=== PATIENT | male | born 1950 | race Caucasian/White ===

== ENCOUNTER 2018-02-17 15:12 | Emergency (ER) | payer MEDICARE ==
[2018-02-17 15:52] VITALS: BP 140/94
[2018-02-17] MEDS ORDERED: DIPH/PERTUSS(ACELL)/TETANUS VAC/PF 0.5 ML SYR (>=10YO) IM ONE (17:25)
[2018-02-17] MEDS ORDERED: LIDOCAINE 1%/EPINEPHRINE INJ 20 ML VIAL INJ ONE (17:26)
--- NOTE | 2018-02-17 17:28 | ER Document Report ---
ED Medical Screen (RME) - General Chief Complaint: Laceration Stated Complaint: ARM LACERATION Time Seen by Provider: 02/17/18 17:21 TRAVEL OUTSIDE OF THE [place] IN LAST 30 DAYS: No - HPI Notes: 02/17/18 17:27 Patient is a 67-year-old male that presents to the emergency department for chief complaint of left forearm laceration. Patient states he cut his left forearm on a knife at about 2 PM today. He denies being on blood thinners. He is not up-to-date on tetanus vaccine. He denies numbness and weakness.. ROS: GENERAL: Denies fever of chills CV: Denies chest pain PHYSICAL EXAMINATION: GENERAL: Well-appearing, well-nourished and in no acute distress. HEAD: Atraumatic, normocephalic. EYES: Pupils equal round extraocular movements intact, conjunctiva are normal. ENT: Nares patent NECK: Normal range of motion LUNGS: No respiratory distress Musculoskeletal: Normal range of motion NEUROLOGICAL: Normal speech, normal gait. PSYCH: Normal mood, normal affect. Skin: 5.0 cm linear full-thickness left forearm laceration with mild bleeding MDM: Patient seen and examined for rapid initial assessment. Vital signs reviewed. A comprehensive ED assessment and evaluation of the patient, analysis of test results and completion of the medical decision making process will be conducted by additional ED providers. 02/17/18 17:28 - Related Data Allergies/Adverse Reactions: No Known Allergies Allergy (Verified 02/17/18 15:26) Past Medical History - Social History Chew tobacco use (# tins/day): No Renal/ Medical History: Denies: Hx Peritoneal Dialysis Physical Exam - Vital signs Vitals: Temp Pulse Resp BP Pulse Ox 97.4 F 76 16 140/94 H 97 02/17/18 15:49 02/17/18 15:49 02/17/18 15:49 02/17/18 15:49 02/17/18 15:49 Course - Vital Signs Vital signs: Temp Pulse Resp BP Pulse Ox 97.4 F 76 16 140/94 H 97 02/17/18 15:49 02/17/18 15:49 02/17/18 15:49 02/17/18 15:49 02/17/18 15:49 Doctor's Discharge - Discharge Referrals: LOCALMD,NO [Primary Care Provider] - Follow up as needed
--- NOTE | 2018-02-17 18:06 | RADIOLOGY REPORT (SQ) ---
EXAM DESCRIPTION: FOREARM LEFT COMPLETED DATE/TIME: 02/17/2018 5:51 pm REASON FOR STUDY: puncture wound COMPARISON: None. NUMBER OF VIEWS: Two views. TECHNIQUE: Two radiographic images acquired of the left forearm, including elbow and wrist in at [address] one projection. LIMITATIONS: None. FINDINGS: MINERALIZATION: Normal. BONES: No acute fracture. No worrisome bone lesions. SOFT TISSUES: No obvious swelling or foreign body. OTHER: No other significant finding. IMPRESSION: No significant findings. TECHNICAL DOCUMENTATION: JOB ID: [id number] [employer]- All Rights Reserved Reading location - IP/workstation name: [email or web address]
--- NOTE | 2018-02-17 20:38 | ER Document Report ---
ED General - General Mode of Arrival: Ambulatory Information source: Patient TRAVEL OUTSIDE OF THE [place] IN LAST 30 DAYS: No <ANTHONY PAULINO - Last Filed: 02/17/18 20:41> <PHAM SAINI - Last Filed: 02/18/18 03:11> - General Chief Complaint: Laceration Stated Complaint: ARM LACERATION Time Seen by Provider: 02/17/18 17:21 Notes: Patient is a 67 year old male presenting to the emergency department complaining of a laceration to the left forearm onset around 1400 today. Patient states he accidentally cut himself using a razor. Patient states he is able to move is hand, wrist and fingers. (ANTHONY PAULINO) - Related Data Allergies/Adverse Reactions: No Known Allergies Allergy (Verified 02/17/18 15:26) Past Medical History - Social History Smoking Status: Former Smoker Chew tobacco use (# tins/day): No Patient has suicidal ideation: No Patient has homicidal ideation: No Renal/ Medical History: Denies: Hx Peritoneal Dialysis <ANTHONY PAULINO - Last Filed: 02/17/18 20:41> - Social History Smoking Status: Former Smoker Frequency of alcohol use: None Drug Abuse: None Family History: Reviewed & Not Pertinent <PHAM SAINI - Last Filed: 02/18/18 03:11> Review of Systems - Review of Systems Constitutional: No symptoms reported EENT: No symptoms reported Cardiovascular: No symptoms reported Respiratory: No symptoms reported Gastrointestinal: No symptoms reported Genitourinary: No symptoms reported Male Genitourinary: No symptoms reported Musculoskeletal: No symptoms reported Skin: See HPI Hematologic/Lymphatic: No symptoms reported Neurological/Psychological: No symptoms reported <PHAM SAINI - Last Filed: 02/18/18 03:11> Physical Exam - Vital signs Interpretation: Normal - General General appearance: Appears well, Alert - HEENT Head: Normocephalic, Atraumatic Eyes: Normal Pupils: PERRL - Respiratory Respiratory status: No respiratory distress Chest status: Nontender Breath sounds: Normal Chest palpation: Normal - Cardiovascular Rhythm: Regular Heart sounds: Normal auscultation Murmur: No - Abdominal Inspection: Normal Distension: No distension Bowel sounds: Normal Tenderness: Nontender Organomegaly: No organomegaly - Back Back: Normal, Nontender - Extremities General upper extremity: Nontender, Normal color, Normal ROM, Normal temperature General lower extremity: Normal inspection, Nontender, Normal color, Normal ROM , Normal temperature, Normal weight bearing. No: Jose's sign Shoulder: Normal Arm: Normal Elbow: Normal Forearm: Laceration - 8 cm to L forearm Wrist: Normal Hand: Normal Hip: Normal Thigh: Normal Knee: Normal Calf: Normal Ankle: Normal - Neurological Neuro grossly intact: Yes Cognition: Normal Orientation: AAOx4 [place] Coma Scale Eye Opening: Spontaneous [place] Coma Scale Verbal: Oriented Mehrdad Coma Scale Motor: Obeys Commands Mehrdad Coma Scale Total: 15 Speech: Normal Motor strength normal: LUE, RUE, LLE, RLE Sensory: Normal - Psychological Associated symptoms: Normal affect, Normal mood - Skin Skin Temperature: Warm Skin Moisture: Dry Skin Color: Normal <PHAM SAINI - Last Filed: 02/18/18 03:11> - Vital signs Vitals: Temp Pulse Resp BP Pulse Ox 97.4 F 76 16 140/94 H 97 02/17/18 15:49 02/17/18 15:49 02/17/18 15:49 02/17/18 15:49 02/17/18 15:49 Course <ANTHONY PAULINO - Last Filed: 02/17/18 20:41> - Diagnostic Test Radiology reviewed: Reports reviewed <PHAM SAINI - Last Filed: 02/18/18 03:11> - Re-evaluation Re-evalutation: 02/17/18 Patient is a 67-year-old male who comes in after sustaining a razor blade injury to his left forearm. Patient is left-hand dominant. Bleeding controlled. Patient is neurovascularly intact. Median, radial, and ulnar nerve with motor and sensation intact throughout. Pulses intact. Laceration has been repaired. Please see procedure note. Given nature of the injury, patient will be discharged home with prophylactic antibiotics with impending storm coming. Patient is to follow-up with his doctor this week and have sutures removed in 10-14 days. Understands agrees with plan. Stable for discharge. (PHAM SAINI) - Vital Signs Vital signs: Temp Pulse Resp BP Pulse Ox 97.4 F 76 16 140/94 H 97 02/17/18 15:49 02/17/18 15:49 02/17/18 15:49 02/17/18 15:49 02/17/18 15:49 Procedures - Laceration/Wound Repair Left forearm Wound length (cm): 8 Wound's Depth, Shape: Linear Laceration pre-procedure: Sterile PPE donned, Sterile drapes applied Anesthetic type: 1% Lidocaine w/epi Wound explored: Clean Irrigated w/ Saline (mLs): 500 Wound Repaired With: Sutures Suture Size/Type: 4:0, Nylon Number of Sutures: 10 Post-procedure wound care: Sterile dressing applied Post-procedure NV exam normal: Yes Complications: No <PHAM SAINI - Last Filed: 02/18/18 03:11> Discharge <ANTHONY PAULINO - Last Filed: 02/17/18 20:41> <PHAM SAINI - Last Filed: 02/18/18 03:11> - Discharge Clinical Impression: Forearm laceration Qualifiers: Encounter type: initial encounter Laterality: left Qualified Code(s): S51.812A - Laceration without foreign body of left forearm, initial encounter Condition: Stable Disposition: HOME, SELF-CARE Instructions: Laceration Care ([facility]), Prophylactic Antibiotic ([facility]), Tetanus Immunization Given ([facility]) Additional Instructions: Please return in 10-14 days for suture removal. Prescriptions: Cephalexin Monohydrate [Keflex 500 mg Capsule] 500 mg PO Q6H 10 Days capsule Forms: Return to Work Scribe Attestation: 02/18/18 02:46 I personally performed the services described in the documentation, reviewed and edited the documentation which was dictated to the scribe in my presence, and it accurately records my words and actions. (PHAM SAINI)
== END 2018-02-17 21:04 | disposition home or self-care (01) ==
LOC: ER 15:12
PROC: 0HQEXZZ Repair Left Lower Arm Skin, External Approach (ICD-10-PCS; principal; 2018-02-17)
DX: S51.812A Laceration without foreign body of left forearm, initial encounter (principal); W45.8XXA Other foreign body or object entering through skin, initial encounter; Z87.891 Personal history of nicotine dependence
CPT/HCPCS: 99283; 90471; 73090; 90715; 12004; J3490

== ENCOUNTER 2018-10-28 13:13 | Emergency (ER) | payer MEDICARE ==
[2018-10-28 13:18] VITALS: BP 137/82
--- NOTE | 2018-10-28 13:36 | ER Document Report ---
ED Medical Screen (RME) - General Chief Complaint: Laceration Stated Complaint: ARM INJURY Time Seen by Provider: 10/28/18 13:31 Mode of Arrival: Ambulatory Information source: Patient TRAVEL OUTSIDE OF THE [place] IN LAST 30 DAYS: No - HPI Patient complains to provider of: INJURY RIGHT ARM Notes: 10/28/18 13:35 Patient here with complaints of injury to the right arm. He states that he was attempting to remove a nail from a roof. He was using one hammer to pry up the nail and using another hammer to hit the hammer that was prying in the nail up. He states that he felt a sudden burning in his right arm and noticed bleeding from the area. Bleeding has since stopped. Tetanus is up-to-date. No other injury. Exam Nontoxic, no distress. Small puncture wound noted to the right medial elbow with no active bleeding. Normal pulse and sensation distally. Compartments soft. No redness, no drainage. Plan X-ray to rule out foreign body, further evaluation by provider in the back. An initial examination was made on the patient as part of the triage process, and it was determined a more comprehensive evaluation was necessary. Initial labs were ordered and patient was transferred to another provider in the ED who assumed care and finished evaluation and plan. - Related Data Allergies/Adverse Reactions: No Known Allergies Allergy (Verified 10/28/18 13:14) Past Medical History - Social History Chew tobacco use (# tins/day): No Frequency of alcohol use: None Drug Abuse: None Renal/ Medical History: Denies: Hx Peritoneal Dialysis Physical Exam - Vital signs Vitals: Temp Pulse Resp BP Pulse Ox 97.9 F 73 18 137/82 H 97 10/28/18 13:15 10/28/18 13:15 10/28/18 13:15 10/28/18 13:15 10/28/18 13:15 Course - Vital Signs Vital signs: Temp Pulse Resp BP Pulse Ox 97.9 F 73 18 137/82 H 97 10/28/18 13:15 10/28/18 13:15 10/28/18 13:15 10/28/18 13:15 10/28/18 13:15
--- NOTE | 2018-10-28 14:06 | RADIOLOGY REPORT (SQ) ---
EXAM DESCRIPTION: ELBOW RIGHT OVER 2 VIEWS COMPLETED DATE/TIME: 10/28/2018 1:51 pm REASON FOR STUDY: POSSIBLE FB COMPARISON: None. NUMBER OF VIEWS: Four views. TECHNIQUE: AP, lateral, and both oblique radiographic images acquired of the right elbow. LIMITATIONS: None. FINDINGS: MINERALIZATION: Normal. BONES: No acute fracture or dislocation. No worrisome bone lesions. JOINT: No effusion. SOFT TISSUES: There is a small radiopaque foreign body lying in the lateral aspect of the antecubital fossa. This lies approximately 1 cm below the skin surface. OTHER: No other significant finding. IMPRESSION: Radiopaque foreign body laterally at the level of the antecubital fossa. TECHNICAL DOCUMENTATION: JOB ID: [id number] [employer]- All Rights Reserved Reading location - IP/workstation name: [email or web address]
--- NOTE | 2018-10-28 15:17 | ER Document Report ---
HPI - HPI Time Seen by Provider: 10/28/18 13:31 Pain Level: 0 Notes: Patient is an otherwise healthy 68-year-old male presented to the emergency department with injury to his right elbow. Patient reports he was hitting to hammers together when 1 of them slipped and he struck himself in the antecubital space of the right arm with the hammer. He states that this broke the skin and he believes a fragment of metal went into his skin. His tetanus is up-to-date. Past Medical History - General Information source: Patient - Social History Smoking Status: Never Smoker Chew tobacco use (# tins/day): No Frequency of alcohol use: None Drug Abuse: None Family History: Reviewed & Not Pertinent Patient has suicidal ideation: No Patient has homicidal ideation: No - Medical History Medical History: Negative Renal/ Medical History: Denies: Hx Peritoneal Dialysis Surgical Hx: Negative - Immunizations Hx Diphtheria, Pertussis, Tetanus Vaccination: Yes Vertical Provider Document - CONSTITUTIONAL Agree With Documented VS: Yes Notes: PHYSICAL EXAMINATION: GENERAL: Well-appearing, well-nourished and in no acute distress. HEAD: Atraumatic, normocephalic. EYES: Pupils equal round extraocular movements intact, conjunctiva are normal. ENT: Nares patent NECK: Normal range of motion LUNGS: No respiratory distress Musculoskeletal: Normal range of motion NEUROLOGICAL: Normal speech, normal gait. PSYCH: Normal mood, normal affect. SKIN: Warm, Dry, normal turgor, no rashes or lesions noted. Puncture wound noted to medial antecubital area of right arm. - INFECTION CONTROL TRAVEL OUTSIDE OF THE [place] IN LAST 30 DAYS: No Course - Re-evaluation Re-evalutation: Small radiopaque foreign body was noted on the x-ray at the lateral side of the right antecubital fossa. There is no fracture or dislocation of the bones. I tried to irrigate the area with a IV catheter attached to a saline flush. This was attempted approximately 10-15 times in an attempt to flush out the foreign body. No foreign body was obtained. Patient will be started on antibiotics. Patient given strict ED return precautions and educated regarding infection. - Vital Signs Vital signs: Temp Pulse Resp BP Pulse Ox 97.9 F 73 18 137/82 H 97 10/28/18 13:15 10/28/18 13:15 10/28/18 13:15 10/28/18 13:15 10/28/18 13:15 Discharge - Discharge Clinical Impression: Puncture wound, Retained foreign body right arm Condition: Stable Disposition: HOME, SELF-CARE Additional Instructions: The x-ray of your elbow did not show any injury to the bones. There was a small radiopaque object just inside of the puncture wound. Unfortunately this did not come out with flushing. Please take the antibiotics as prescribed. Please monitor for signs of infection such as increased pain, increased redness, swelling, drainage from the area or red streaking from the area. If any of these occur please return to the emergency department. If the retained foreign body does not come out on its own and becomes bothersome to you you may follow- up with surgery for consideration of removal. Prescriptions: Cephalexin [Cephalexin 500 MG Tablet] 1 tab PO TID #21 tablet Referrals: VEDA JACKMAN MD [REYMUNDO MILLS] - Follow up as needed
== END 2018-10-28 15:20 | disposition home or self-care (01) ==
LOC: ER 13:13
DX: S51.041A Puncture wound with foreign body of right elbow, initial encounter (principal); W22.8XXA Striking against or struck by other objects, initial encounter
CPT/HCPCS: 99283